=== PATIENT | female | born 1975 | race Caucasian/White ===

== ENCOUNTER 2018-04-07 12:55 | Emergency (ER) | payer OTHER ==
[~2018-04-07] VITALS: Ht 162.6 cm; Wt 79.4 kg
[2018-04-07] MEDS ORDERED: ADVAIR HFA 115/12 GM (13:43)
== END 2018-04-07 17:20 | disposition home or self-care (01) ==
LOC: ER 12:55
DX: M54.41 Lumbago with sciatica, right side (principal)

== ENCOUNTER 2018-04-26 15:23 | Emergency (ER) | payer OTHER ==
[~2018-04-26] VITALS: Ht 162.6 cm; Wt 79.4 kg
[~2018-04-26 15:23] MED LIST: ADVAIR HFA 115/12 GM
== END 2018-04-26 22:02 | disposition home or self-care (01) ==
LOC: ER 15:23
DX: J45.998 Other asthma (principal); J01.80 Other acute sinusitis

== ENCOUNTER 2019-02-17 11:34 | Emergency (ER) | payer OTHER ==
[~2019-02-17] VITALS: Ht 162.6 cm; Wt 81.6 kg
== END 2019-02-17 17:37 | disposition home or self-care (01) ==
LOC: ER 11:34
DX: J45.998 Other asthma (principal)

== ENCOUNTER 2020-03-17 12:31 | Emergency (ER) | payer OTHER ==
[~2020-03-17] VITALS: Ht 165.1 cm; Wt 86.2 kg
[2020-03-17] MEDS ORDERED: ZINC SULFATE220 M2 PO (18:11)
[2020-03-17] MEDS ORDERED: IVERMECTIN3 MG PO (18:11)
[2020-03-17] MEDS ORDERED: ACETAMINOPHEN650 M2 PO (18:11)
[2020-03-17] MEDS ORDERED: AZITHROMYCIN250 MG PO (18:11)
[2020-03-17] MEDS ORDERED: VITAMIN C WIT1000 MG PO (18:11)
[2020-03-17] MEDS ORDERED: MELATONIN 10 M1 EACH PO (18:11)
[2020-03-17] MEDS ORDERED: VITAMIN D3-ALO1 EACH PO (18:11)
== END 2020-03-17 18:35 | disposition home or self-care (01) ==
LOC: ER 12:31
DX: B34.9 Viral infection, unspecified (principal); J06.9 Acute upper respiratory infection, unspecified; Z03.818 Encounter for observation for suspected exposure to other biological agents ruled out

== ENCOUNTER 2020-06-06 08:42 | Emergency (ER) | payer OTHER ==
[~2020-06-06] VITALS: Ht 162.6 cm; Wt 63.5 kg
[~2020-06-06 08:42] MED LIST changes: +ACETAMINOPHEN650 M2 PO; +AZITHROMYCIN250 MG PO; +IVERMECTIN3 MG PO; +MELATONIN 10 M1 EACH PO; +VITAMIN C WIT1000 MG PO; +VITAMIN D3-ALO1 EACH PO; +ZINC SULFATE220 M2 PO
[2020-06-06] MEDS ORDERED: AIRDUO RESPICL1 EAC1 (08:49)
[2020-06-06] MEDS ORDERED: IBU800 MG PO (13:08)
== END 2020-06-06 13:10 | disposition home or self-care (01) ==
LOC: ER 08:42
DX: B34.9 Viral infection, unspecified (principal); T50.Z95A Adverse effect of other vaccines and biological substances, initial encounter

== ENCOUNTER 2020-07-28 22:45 | Emergency (ER) | payer OTHER ==
[~2020-07-28] VITALS: Ht 165.1 cm; Wt 88.5 kg
[~2020-07-28 22:45] MED LIST changes: +AIRDUO RESPICL1 EAC1; +IBU800 MG PO
[2020-07-28] MEDS ORDERED: ADVAIR HFA 115/12 GM (23:25)
[2020-07-29] MEDS ORDERED: ZYRTEC10 MG PO (04:17)
[2020-07-29] MEDS ORDERED: PROAIR HFA8.5 GM IH (04:17)
[2020-07-29] MEDS ORDERED: MUCINEX DM ER1 EAC1 PO (04:17)
[2020-07-29] MEDS ORDERED: MEDROLPACK PO (04:17)
== END 2020-07-29 04:25 | disposition home or self-care (01) ==
LOC: ER 22:45
DX: J45.998 Other asthma (principal); J06.9 Acute upper respiratory infection, unspecified

== ENCOUNTER 2021-04-20 06:55 | Emergency (ER) | payer OTHER ==
[~2021-04-20] VITALS: Ht 165.1 cm; Wt 88.5 kg
[~2021-04-20 06:55] MED LIST changes: +MEDROLPACK PO; +MUCINEX DM ER1 EAC1 PO; +PROAIR HFA8.5 GM IH; +ZYRTEC10 MG PO
== END 2021-04-20 11:00 | disposition home or self-care (01) ==
LOC: ER 06:55
DX: N93.9 Abnormal uterine and vaginal bleeding, unspecified (principal); N83.201 Unspecified ovarian cyst, right side

== ENCOUNTER 2021-08-10 10:30 | Emergency (ER) | payer OTHER ==
[~2021-08-10] VITALS: Ht 165.1 cm; Wt 90.7 kg
[2021-08-10] MEDS ORDERED: PROAIR RESPICL90 MCG (10:52)
== END 2021-08-10 15:07 | disposition home or self-care (01) ==
LOC: ER 10:30
DX: J40 Bronchitis, not specified as acute or chronic (principal); Z20.822 Contact with and (suspected) exposure to COVID-19

== ENCOUNTER 2021-09-16 19:30 | Emergency (ER) | payer OTHER ==
[~2021-09-16] VITALS: Ht 165.1 cm; Wt 95.3 kg
[~2021-09-16 19:30] MED LIST changes: +PROAIR RESPICL90 MCG
== END 2021-09-16 22:13 | disposition home or self-care (01) ==
LOC: ER 19:30
DX: B34.9 Viral infection, unspecified (principal); Z20.822 Contact with and (suspected) exposure to COVID-19